=== PATIENT | female | born 2000 | race Two or more races ===

== ENCOUNTER 2022-06-12 00:59 | Inpatient (IN) | payer OTHER ==
[~2022-06-12] VITALS: Ht 160 cm; Wt 52.6 kg
[2022-06-12] MEDS ORDERED: PRENATAL + DHA1 EAC1 PO (09:03)
== END 2022-06-14 15:08 | disposition home or self-care (01) | DRG 807 ==
LOC: OBS/DEL 00:59 → LDR 01:45 → OB/GYN 08:25 → LDR 08:25 → OBS/DEL 08:25 → LDR 12:40 → OB/GYN 13:53
PROVIDERS: ADMIT Obstetrics & Gynecology; ATTEND Obstetrics & Gynecology
PROC: 10E0XZZ Delivery of Products of Conception, External Approach (ICD-10-PCS; principal; 2022-06-12)
PROC: 4A1HXCZ Monitoring of Products of Conception, Cardiac Rate, External Approach (ICD-10-PCS; 2022-06-12)
DX: O60.14X0 Preterm labor third trimester with preterm delivery third trimester, not applicable or unspecified (principal); Z37.0 Single live birth; Z3A.35 35 weeks gestation of pregnancy; Z20.822 Contact with and (suspected) exposure to COVID-19